=== PATIENT | male | born 1940 | race Caucasian/White ===

== ENCOUNTER 2016-07-16 19:02 | Emergency (ER) | payer MEDICARE, OTHER ==
[2016-07-16] MEDS ORDERED: METHYLPREDNISOLONE SOD SUCC/PF 40 MG/ML VIAL IM ONE (19:32)
[2016-07-16] MEDS ORDERED: ALBUTEROL SULFATE/IPRATROPIUM 3 ML NEBU IH ONE (19:32)
[2016-07-16] MEDS ORDERED: LEVALBUTEROL HCL 0.63 MG/3 ML AMPUL IH ONE ×4 (19:34→21:09)
[2016-07-16] MEDS ORDERED: LEVALBUTEROL HCL 1.25 MG/3 ML AMPUL IH ONE (19:42)
[2016-07-16 19:46] LABS: Hematocrit 39.1 % (42.0-52.0); Hemoglobin 12.8 gm/dL (13.5-18.0); Mean Cell Volume 87.5 fl (78-100); Mean Corpuscular Hemoglobin 28.6 pg (27-31); Mean Corpuscular Hgb Conc 32.7 g/dl (32-36); Mean Platelet Volume 9.3 fl (6.0-9.5); Neutrophil # 5.6 K/mm3 (1.3-6.0); Neutrophil % 72.1 % (42-75.0); Platelet Count 209 K/mm3 (150-450); Red Blood Count 4.47 M/mm3 (4.7-6.0); Red Cell Distribution Width 19.4 % (11.5-14.0); White Blood Count 7.8 K/mm3 (4.0-10.5)
[2016-07-16] MEDS ORDERED: METHYLPREDNISOLONE SOD SUCC/PF 40 MG/ML VIAL ONE (19:46)
--- OUTSIDE RECORDS SUMMARY | 2016-07-16 19:55 | XMS REPORT | Continuity of Care Document ---
:1940 Author Organization [facility] ([facility]) Address [address] [place] [address] Phone [phone] Care Team Providers Name Role Phone Jeison Brown Primary Care Provider [phone] Source Comments This disclosure is being made pursuant to the Care Everywhere program, applicable federal and state laws, and may not contain all informaitonavailable regarding this patient.[facility] ([facility]) Active Allergies and Adverse Reactions No Known Allergies Current Medications Prescription Sig. Disp. Refills Start Date End Date Status metoPROLol succinate Take 25 mg by Active 25 mg XL tablet mouth daily aspirin 81 mg EC Take 81 mg by Active tablet mouth every 48 hours. Take one aspirin every other day urea 10 % lotion Apply topically Active daily For dry skin. sotalol 120 mg tablet Take 0.5 tablets 90 tablet 0 10/17/2014 Active (60 mg total) by mouth 2 times daily atorvastatin 40 mg Take 1 tablet (40 90 tablet 0 10/17/2014 Active tablet mg total) by mouth at bedtime apixaban (ELIQUIS) 5 Take 1 tablet (5 180 tablet 3 01/09/2015 Active mg tablet mg total) by mouth 2 times daily tiotropium (SPIRIVA) Use 18 mcg by Active 18 mcg inhalation inhalation daily. capsule Active Problems Problem Noted Date Paroxysmal atrial fibrillation 01/08/2015 HTN (hypertension) 01/08/2015 Myocardial infarction 01/08/2015 Probable sinus node dysfunction, with sinus pause of 4.5 seconds with 2014 conversion from AF Coronary atherosclerosis of [place] coronary artery 10/12/2014 COPD (chronic obstructive pulmonary disease) 10/12/2014 Tobacco abuse 10/12/2014 AAA (abdominal aortic aneurysm) Resolved Problems Problem Noted Date Resolved Date Supraventricular tachycardia 10/16/2014 10/17/2014 Chronic atrial fibrillation 10/12/2014 10/17/2014 Hyperlipidemia 10/12/2014 10/17/2014 Atrial fibrillation, unspecified 10/12/2014 10/17/2014 Most Recent Encounters Date Type Specialty Providers Description 05/03/2016 Office Visit Heart and Vascular Yris Caldera ARNP Chief Comp : Patient Reported Reason For Visit Social History Tobacco Use Types Packs/Day Years Used Date Former Smoker Cigarettes 1.5 Quit: 10/16/2014 Smokeless Tobacco: Never Used Tobacco Cessation:Counseling Given: Yes Comments: Last Filed Vital Signs Vital Sign Reading Time Taken Blood Pressure 110/50 04/13/2016 1:39 PM [employer] Pulse 48 04/13/2016 1:39 PM [employer] Temperature 36 C (96.8 F) 10/17/2014 8:00 AM CDT Respiratory Rate 16 10/17/2014 8:00 AM CDT Height 1.676 m (5' 6") 04/13/2016 1:39 PM [employer] Weight 78.472 kg (173 lb) 04/13/2016 1:39 PM [employer] Body Mass Index 27.94 04/13/2016 1:39 PM [employer] Oxygen Saturation 94% 10/17/2014 8:00 AM CDT Plan of Care Date Type Specialty Providers Description 10/25/2016 Appointment Heart and Vascular Yris Coleman ARNP Chief Comp: Patient [address] [place] [address] Visit [phone] (Fax) 04/26/2017 Appointment Heart and Vascular Tracy Hernandez, Chief Comp: Patient DO Reported Reason For [address] [place] [address] [phone] (Fax) Health Maintenance Due Date Last Done Comments Hepatitis B Vaccine (1 of 3 - Primary Series) 1940 Tdap Vaccine 1949 Lipid Disorder Screening 1956 Td Vaccine 1958 Colonoscopy 12/30/1988 Zoster Vaccine 1998 Pneumococcal Vaccine (1 of 2 - PCV13) 01/01/2004 Influenza Vaccine: Seasonal (#1) 09/07/2015 Results from Last 3 Months Not on file
[2016-07-16 20:08] LABS: Albumin * 2.8 gm/dl (3.4-5.0); Anion Gap 13.3 mmol/L (6.8-13.8); BUN/Creatinine Ratio 12.6 (9.0-21.6); Bilirubin, Total 1.3 mg/dL (0.0-1.1); Calcium * 8.4 mg/dL (7.9-10.9); Carbon Dioxide 26.9 mmol/L (24-32.6); Potassium 4.2 mmol/L (3.4-4.6); Total Protein 6.4 gm/dL (6.2-8.2)
[2016-07-16] MEDS ORDERED: AZITHROMYCIN 250 MG TABLET PO ONE (21:06)
[2016-07-16] MEDS ORDERED: AZITHROMYCIN 250 MG TABLET ONE (21:13)
--- NOTE | 2016-07-16 21:49 | ERNOTE ---
Date of Service: 07/16/16 Time Seen by Provider: 07/16/16 19:29 Stated Complaint: COUGH, SOB Presenting Symptoms:: cough Source: patient Exam Limitations: no limitations Immunizations: IMMUNIZATION HX Immunizations Up to Date Yes History of Influenza Vaccine Yes Hx Pneumococcal Vaccination Yes Allergies/Adverse Reactions: Allergies midazolam HCl [From Versed] Adverse Reaction (Verified 07/16/16 19:11) Other Home Medications: HOME MEDICATIONS Apixaban [Eliquis] 5 mg PO BID 01/17/16 [Last Taken 01/17/16] Aspirin [Aspirin EC] 81 mg PO DAILY 01/17/16 [Last Taken 01/17/16] Atorvastatin Calcium 40 mg PO DAILY #90 tablet 01/17/16 [Last Taken Unknown] Metoprolol Succinate 25 mg PO DAILY 01/17/16 [Last Taken 01/17/16] Sotalol HCl [Sotalol] 120 mg PO BID 01/17/16 [Last Taken 01/17/16] Azithromycin [Zithromax] 500 mg PO NOW #6 tab 07/16/16 [Last Taken Unknown] Fluticasone/Salmeterol [Advair Hfa 45-21 Mcg Inhaler] 8 gm IH DAILY 30 Days 11/22 [Last Taken Unknown] Ipratropium [place] [Atrovent Hfa] 2 puff IH QID 07/16/16 [Last Taken Unknown] Levalbuterol HCl [Xopenex] 0.63 mg IH Q6H PRN #30 vial 07/16/16 [Last Taken Unknown] predniSONE [Prednisone] See Taper PO DAILY #18 tablet 07/16/16 [Last Taken Unknown] - History of Present Ilness Narrative: 75 year old male brought in to ER by family for cough and increased SOB. patient states she has had a cough for a whole, dosnt know how long. states he does have COPD but dosnt take his medication all the time. Date (Duration): 07/16/16 Timing: constant Severity: mild Frequency/Possible Cause: Reports: frequent episodes Modifying Factors - Improves: Reports: nothing Modifying Factors - Worsens: Reports: activity, coughing Associated Symptoms: Reports: cough, shortness of breath, wheezing. Denies: chest pain/soreness, facial pain, nasal congestion, nasal drainage, lightheadedness, headache, sore throat, fever/chills Review of Systems - Review of Systems Constitutional: Present: See HPI, weakness EYE: Present: no symptoms reported ENT: Present: no symptoms reported Respiratory: Present: See HPI, shortness of breath, cough, wheezing Cardiology: Present: no symptoms reported Gastrointestinal/Abdominal: Present: no symptoms reported Genitourinary: Present: no symptoms reported Musculoskeletal: Present: no symptoms reported Skin: Present: no symptoms reported Neurological: Present: no symptoms reported Endocrine: Present: no symptoms reported Hematologic/Lymphatic: Present: no symptoms reported Psych: Present: no symptoms reported All Other Systems: All systems neg except as marked - Patient's Past Medical History Patient History - Medical: Anemia, Anxiety Patient History - Cardiac/Respiratory: Atrial Fibrillation, Coronary Heart Disease, COPD, Myocardial Infarction, TIA, Other Patient History - Surgical Procedures: Cardiac stent, T & A Patient History - Other: None - Social History Living Situations: spouse Psych History: No pertinent hx Smoking Status: Former smoker Alcohol Use: none Drug Use: none - Immunizations Immunizations Up to Date: Yes Hx Pneumococcal Vaccination: Yes History of Influenza Vaccine: Yes Physical Exam - Physical Exam Narrative: this pleasant patient has some short term memory issues according to his family. Lung sounds were coarse with scattered wheezing and ronchi throughout. General Appearance: Present: wd/wn, alert, no apparent distress Eye Exam: Normal inspection: bilateral Ears, Nose, Throat: Present: normal ENT inspection, normal pharynx Respiratory: Present: decreased breath sounds, rhonchi, wheezing Cardiovascular/Chest: Present: regular rate, rhythm, no murmur, normal peripheral pulses Gastrointestinal/Abdominal: Present: normal bowel sounds, soft Back Exam: Present: normal inspection, normal range of motion, no CVA tenderness , no vertebral tenderness Extremity Exam: Present: normal inspection, normal range of motion, no edema Neurological Exam: Present: alert, oriented, normal mood/affect, no motor/ sensory deficits Skin Exam: Present: normal color, warm/dry Lymphatic Exam: Present: no adenopathy ED Progress - Results and Orders Patient's Lab Results:: I have reviewed the patient's lab results. Results and Orders: no acute process - Vital Signs Vital Signs: Vital Signs 07/16/16 07/16/16 07/16/16 19:07 19:17 19:44 Temperature 36.2 C L Pulse Rate 90 86 82 Respiratory 22 H 13 18 Rate Blood Pressure 143/61 140/58 O2 Sat by Pulse 96 94 95 Oximetry 07/16/16 07/16/16 07/16/16 19:47 20:17 20:55 Temperature Pulse Rate 83 81 83 Respiratory 18 12 22 H Rate Blood Pressure 108/52 109/52 130/58 O2 Sat by Pulse 94 94 93 Oximetry 07/16/16 21:10 Temperature Pulse Rate 81 Respiratory 20 Rate Blood Pressure O2 Sat by Pulse 95 Oximetry - EKG EKG: NSR EKG read: Reviewed by me EKG Comments: interp by ER attending - X-Ray X-Ray #1 X-Ray: chest Interpretation: Reviewed by me X-ray Comments: hyperinflated - Progress/Reassessment Chief Complaint: Cough Progress:: Improved Plan - Plan Plan: patient is to follow up with his PCP on monday. i discussed at length with daughter about patient and needing help at home especially with medications and health care issues. daughter understands and says she is going to follow up with it and help them stay organized Departure - Departure Clinical Impression: COPD exacerbation Disposition: Home Follow Up Needed Condition: Stable Instructions: Chronic Obstructive Pulmonary Disease Exacerbation, [id number] , Chronic Obstructive Pulmonary Disease, [id number] Additional Instructions: Continue the previous home medications as directed. Follow up with her primary care provider on Monday. Return to the emergency room. Developed more shortness of breath started running a fever of any other change in condition. Referrals: Jeison Olivares MD [Primary Care Provider] - Prescriptions: Azithromycin [Zithromax] 500 mg PO NOW #6 tab Fluticasone/Salmeterol [Advair Hfa 45-21 Mcg Inhaler] 8 gm IH DAILY 30 Days Levalbuterol HCl [Xopenex] 0.63 mg IH Q6H PRN #30 vial PRN Reason: Shortness Of Breath predniSONE [Prednisone] See Taper PO DAILY #18 tablet
[2016-07-16 22:15] VITALS: BP 121/54
== END 2016-07-16 22:13 | disposition home or self-care (01) ==
LOC: ER 19:02
DX: J44.1 Chronic obstructive pulmonary disease with (acute) exacerbation (principal); D64.9 Anemia, unspecified; I48.91 Unspecified atrial fibrillation; Z79.01 Long term (current) use of anticoagulants; I25.2 Old myocardial infarction

== ENCOUNTER 2016-07-18 09:01 | Emergency (ER) | payer MEDICARE, OTHER ==
--- OUTSIDE RECORDS SUMMARY | 2016-07-18 10:36 | XMS REPORT | Continuity of Care Document ---
:1940 Author Organization [facility] ([facility]) Address [address] [place] [address] Phone [phone] Care Team Providers Name Role Phone Jeison Brown Primary Care Provider [phone] Source Comments This disclosure is being made pursuant to the Care Everywhere program, applicable federal and state laws, and may not contain all informaitonavailable regarding this patient.[facility] ([facility]) Active Allergies and Adverse Reactions No Known [...] 2014 conversion from AF Coronary atherosclerosis of [place] coronary artery 10/12/2014 COPD (chronic obstructive pulmonary [...] Taken Blood Pressure 110/50 04/13/2016 1:39 PM [employer] Pulse 48 04/13/2016 1:39 PM [employer] Temperature 36 C (96.8 F) 10/17/2014 8:00 AM CDT Respiratory Rate 16 10/17/2014 8:00 AM CDT Height 1.676 m (5' 6") 04/13/2016 1:39 PM [employer] Weight 78.472 kg (173 lb) 04/13/2016 1:39 PM [employer] Body Mass Index 27.94 04/13/2016 1:39 PM [employer] Oxygen Saturation 94% 10/17/2014 8:00 AM CDT Plan of Care Date Type Specialty Providers Description 10/25/2016 Appointment Heart and Vascular Yris Coleman ARNP Chief Comp: Patient [address] [place] [address] Visit [phone] (Fax) 04/26/2017 Appointment Heart and Vascular Tracy Hernandez, Chief Comp: Patient DO Reported Reason For [address] [place] [address] [phone] (Fax) Health Maintenance Due Date Last Done Comments Hepatitis B Vaccine (1 of 3 - Primary Series) 1940 Tdap Vaccine 1949 Lipid Disorder Screening 1956 Td Vaccine 1956 Colonoscopy 12/30/1988 Zoster Vaccine 1998 Pneumococcal Vaccine (1 of 2 - PCV13) 01/01/2004 Influenza Vaccine: Seasonal (#1) 09/07/2015 Results from Last 3 Months Not on file
[2016-07-18 10:44] LABS: Hemoglobin 12.5 gm/dL (13.5-18.0); Mean Cell Volume 87.2 fl (78-100); Mean Corpuscular Hemoglobin 28.7 pg (27-31); Mean Corpuscular Hgb Conc 32.9 g/dl (32-36); Mean Platelet Volume 9.7 fl (6.0-9.5); Neutrophil # 11.1 K/mm3 (1.3-6.0); Neutrophil % 80.9 % (42-75.0); Platelet Count 282 K/mm3 (150-450); Red Blood Count 4.36 M/mm3 (4.7-6.0); Red Cell Distribution Width 19.5 % (11.5-14.0); White Blood Count 13.7 K/mm3 (4.0-10.5)
[2016-07-18 11:00] LABS: ALT 31 U/L (19-67); AST 36 U/L (0-48); Albumin * 2.7 gm/dl (3.4-5.0); Alkaline Phosphatase * 85 U/L (50-170); Anion Gap 12.5 mmol/L (6.8-13.8); BUN/Creatinine Ratio 17.9 (9.0-21.6); Bilirubin, Total 0.8 mg/dL (0.0-1.1); Blood Urea Nitrogen 21 mg/dL (6-23); Ca. Corrected For Albumin 9.5 mg/dL (8.4-10.2); Calcium * 8.8 mg/dL (7.9-10.9); Carbon Dioxide 27.4 mmol/L (24-32.6); Chloride 107 mmol/L (97-106); Glucose * 121 mg/dL (70-110); Potassium 3.9 mmol/L (3.4-4.6); Sodium 143 mmol/L (132-142); Total Protein 6.3 gm/dL (6.2-8.2)
[2016-07-18 11:03] LABS: Troponin I Less than 0.017 ng/ml (0.00-0.10)
[2016-07-18 11:23] LABS: Urine Appearance Clear; Urine Bilirubin Negative (NEGATIVE); Urine Blood Negative /ul (NEGATIVE); Urine Color Yellow; Urine Ketone Negative (NEGATIVE)
[2016-07-18 11:24] LABS: Urine Bacteria None Seen; Urine Nitrite Negative (NEGATIVE); Urine Protein Negative (NEGATIVE); Urine RBC None Seen /hpf (0-5); Urine WBC None Seen /hpf (0-5); Urine pH 6.5 pH (5.0-7.0)
[2016-07-18] MEDS ORDERED: DOXYCYCLINE HYCLATE 100 MG TABLET PO ONE (12:32)
[2016-07-18 12:35] VITALS: BP 126/62
--- NOTE | 2016-07-18 12:46 | ERNOTE ---
Dizziness ER Record Date of Service: 07/18/16 Presenting Symptoms: dizziness Time Seen by Provider: 07/18/16 10:27 Source: patient Exam Limitations: no limitations Immunizations: IMMUNIZATION HX Immunizations Up to Date Yes History of Influenza Vaccine Yes Hx Pneumococcal Vaccination Yes Allergies/Adverse Reactions: Allergies Allergy/AdvReac Type Severity Reaction Status Date / Time midazolam HCl [From Versed] AdvReac Other Verified 07/18/16 09:27 Home Medications: HOME MEDICATIONS Apixaban [Eliquis] 5 mg PO BID 01/17/16 [Last Taken 01/17/16] Aspirin [Aspirin EC] 81 mg PO DAILY 01/17/16 [Last Taken 01/17/16] Atorvastatin Calcium 40 mg PO DAILY #90 tablet 01/17/16 [Last Taken Unknown] Metoprolol Succinate 25 mg PO DAILY 01/17/16 [Last Taken 01/17/16] Sotalol HCl [Sotalol] 120 mg PO BID 01/17/16 [Last Taken 01/17/16] Azithromycin [Zithromax] 500 mg PO NOW #6 tab 07/16/16 [Last Taken Unknown] Fluticasone/Salmeterol [Advair Hfa 45-21 Mcg Inhaler] 8 gm IH DAILY 30 Days 11/22 [Last Taken Unknown] Ipratropium [place] [Atrovent Hfa] 2 puff IH QID 07/16/16 [Last Taken Unknown] Levalbuterol HCl [Xopenex] 0.63 mg IH Q6H PRN #30 vial 07/16/16 [Last Taken Unknown] predniSONE [Prednisone] See Taper PO DAILY #18 tablet 07/16/16 [Last Taken Unknown] Doxycycline Monohydrate 100 mg PO BID #20 tablet 07/18/16 [Last Taken Unknown] - History of Present Illness Narrative: Patient presents to the ED for dizziness. He relates that this am he got up and felt off balance. She states he used a new inhaler and the right side of his lips stated to feel numb after this. He got up and felt off balance, dizzy. This lasted for 15-20 minutes then went away. No fever. Now Sx free. he was recently seen here and started on ABx. He denies headache. No CP or SOB. Has been having increased cough. No other focal N/T/W. Timing and Duration: sudden onset Episodes lasting:: 15-20 minutes. Severity: currently: gone Associated Symptoms: Absent: ringing/roaring in ear, weakness, sweating, sense of confusion Sense of movement: Present: vague Decreased ability to stand/walk:: Present: off balance Usually:: Present: walks w/o assistance Modifying Factors - (Worsens): Reports: standing position Prior Treament: Reports: recently seen Review of Systems - Review of Systems Constitutional: Absent: fever Respiratory: Present: cough Cardiology: Absent: chest pain Gastrointestinal/Abdominal: Absent: abdominal pain Genitourinary: Absent: dysuria Neurological: Absent: weakness All Other Systems: All systems neg except as marked - Patient's Past Medical History Patient History - Medical: Anemia, Anxiety Patient History - Cardiac/Respiratory: Atrial Fibrillation, Coronary Heart Disease, COPD, Myocardial Infarction, TIA, Other Patient History - Surgical Procedures: Cardiac stent, T & A Patient History - Other: None - Social History Living Situations: home Psych History: No pertinent hx Alcohol Use: none Drug Use: none - Immunizations Immunizations Up to Date: Yes Hx Pneumococcal Vaccination: Yes History of Influenza Vaccine: Yes Physical Exam - Physical Exam General Appearance: Present: alert, no apparent distress Eye Exam: Normal inspection: bilateral, PERRL: bilateral Ears, Nose, Throat: Present: normal ENT inspection, nasal congestion Neck: Present: normal inspection Respiratory: Present: no respiratory distress, no accessory muscle use, other - few faint wheezes in the bases. Cardiovascular/Chest: Present: regular rate, rhythm, normal peripheral pulses Gastrointestinal/Abdominal: Present: normal bowel sounds, nontender, nondistended, soft Back Exam: Absent: CVA tenderness (R), CVA tenderness (L) Extremity Exam: Present: normal inspection Neurological Exam: Present: alert, normal mood/affect, no motor/sensory deficits , media aid II-XII nml as tested, normal cerebellar test, other - Can abulate without assistance. Finger to nose wnl. Strenth and sensation full. NIH-).. Absent: motor weakness Skin Exam: Absent: skin rash ED Progress - Results and Orders Patient's Lab Results:: I have reviewed the patient's lab results. - Vital Signs Patient's Vital Signs:: I have reviewed the patient's vital signs. Vital Signs: Vital Signs 07/18/16 07/18/16 07/18/16 09:09 09:51 10:13 Temperature 37.1 C Pulse Rate 79 75 70 Respiratory 18 12 Rate Blood Pressure 132/69 110/57 O2 Sat by Pulse 94 96 Oximetry 07/18/16 07/18/16 07/18/16 10:15 10:22 10:30 Temperature 37.1 C Pulse Rate 68 66 Respiratory 14 Rate Blood Pressure 112/64 110/57 116/46 O2 Sat by Pulse 98 97 97 Oximetry 07/18/16 07/18/16 07/18/16 10:43 11:09 11:36 Temperature Pulse Rate 72 68 74 Respiratory 12 17 Rate Blood Pressure 128/58 114/54 128/69 O2 Sat by Pulse 98 97 96 Oximetry 07/18/16 07/18/16 11:55 12:11 Temperature 37.1 C Pulse Rate 76 78 Respiratory 16 14 Rate Blood Pressure 130/71 126/56 O2 Sat by Pulse 95 95 Oximetry - EKG EKG: NSR EKG read: Interp. by me EKG Comments: NSR rate 75. Non-specific changes, no STEMI - CT/Ultrasound CT/Ultrasound Narrative: Head CT report reviewed. - Progress/Reassessment Chief Complaint: Dizziness Progress Note-Subjective: 07/18/16 12:41 Patient remains at baseline. he had no acute head CT abnormality but does have sinusitis. His Sx are all resolved. Clinically this is not typical for stroke/ TIA but I did offer him observation in the hospital. he declines this. he understands risks and benefits. He wishes to go home. I discussed warning signs and reasons to return as well as the need for close f/u. Departure Clinical Impression: Dizziness - Departure Disposition: Home self-care Condition: Stable Additional Instructions: Rest. Fluids. Stop current antibiotic and begin new antibiotic. See your doctor in follow- up in the next 1-2 days. Return here if you change your mind about observation, develop weakness, headache, fever, trouble breathing or if your condition worsens or changes in any way. Referrals: Jeison Olivares MD [Primary Care Provider] - Prescriptions: Doxycycline Monohydrate 100 mg PO BID #20 tablet
[2016-07-18] MEDS ORDERED: DOXYCYCLINE HYCLATE 100 MG TABLET ONE (12:54)
== END 2016-07-18 13:02 | disposition home or self-care (01) ==
LOC: ER 09:01
DX: R42 Dizziness and giddiness (principal); D64.9 Anemia, unspecified; F41.9 Anxiety disorder, unspecified; I48.91 Unspecified atrial fibrillation; Z79.01 Long term (current) use of anticoagulants; I25.2 Old myocardial infarction